=== PATIENT | male | born 1995 | race Caucasian/White ===

== ENCOUNTER 2021-01-01 12:10 | Emergency (ER) | payer SELFPAY ==
[2021-01-01] MEDS ORDERED: Boostrix 0.5 ML (Tdap) VIAL ONE (12:33)
[2021-01-01] MEDS ORDERED: Lidocaine 1% 20 ML MDV ONE (12:38)
[2021-01-01] MEDS ORDERED: Bacitracin 1 PK ONE (12:59)
== END 2021-01-01 13:19 | disposition home or self-care (01) ==
LOC: MADERS 12:10
DX: S61.411A Laceration without foreign body of right hand, initial encounter (principal); W45.8XXA Other foreign body or object entering through skin, initial encounter
CPT/HCPCS: 12002; 90471; 90715